=== PATIENT | female | born 1980 | race Two or more races ===

== ENCOUNTER 2018-01-18 11:41 | Emergency (ER) | payer MEDICAID ==
[~2018-01-18] VITALS: Ht 162.6 cm; Wt 90.7 kg
[2018-01-18 12:01] VITALS: BP 119/68
[2018-01-18] MEDS ORDERED: KETOROLAC TROMETH 60MG/2ML VIAL IM ONE (12:30)
== END 2018-01-18 13:55 | disposition home or self-care (01) ==
LOC: ER 11:41 → EDBD 11:41 → ER 13:55
DX: S52.292A Other fracture of shaft of left ulna, initial encounter for closed fracture (principal); S20.219A Contusion of unspecified front wall of thorax, initial encounter; V43.52XA Car driver injured in collision with other type car in traffic accident, initial encounter; Y93.89 Activity, other specified; Y99.8 Other external cause status; Y92.488 Other paved roadways as the place of occurrence of the external cause
CPT/HCPCS: 29125; 71046; 73090; 96372; 99284; J1885